=== PATIENT | female | born 1980 | race Caucasian/White ===

== ENCOUNTER 2019-07-23 10:10 | Emergency (ER) | payer OTHER, SELFPAY ==
[2019-07-23 10:17] VITALS: BP 126/79; PULSE 78; RESP 19; TEMP 36.5; O2SAT 100
--- NOTE | 2019-07-23 11:24 | ED_ITS ---
HPI - Back Pain/Injury <SREEKANTH Leach - Last Filed: 07/23/19 22:11> General Chief Complaint: Back Pain/Injury Stated Complaint: lower back pain,legs,feet Time Seen by Provider: 07/23/19 10:59 Source: patient Mode of arrival: ambulatory Limitations: no limitations History of Present Illness HPI Narrative: 38-year-old female with a history of sciatica, presents emergency department today complaining of left sided buttocks pain. She states the pain is constant 9/10 dull aching pressure with occasional shooting pains down the back of her left leg. This started 2 days ago, it is worse with sitting and standing and slightly better with lying, the pain radiates down her left leg and causes occasional tingling to the back of her calf. She states yesterday it started to radiate to her right leg, today the pain is much worse. She also reports a ?pressure in her pubic bone ?, but denies dysuria. Patient denies fevers, chest pain, shortness of breath, rash, weakness in her legs, saddle paresthesias, abdominal pain, nausea, vomiting, or diarrhea. Related Data Home Medications Medication Instructions Recorded Confirmed duloxetine 30 mg PO QDAY #0 01/06/18 lamotrigine [Lamictal] 100 mg PO Q DAY #0 01/06/18 levonorgestrel-ethinyl estrad 1 PO QDAY #0 01/06/18 [Setlakin] propranolol 20 mg PO QDAY #0 01/06/18 lisdexamfetamine [Vyvanse] 50 mg PO DAILY 07/23/19 07/23/19 rizatriptan 10 mg PO DIRECTED 07/23/19 07/23/19 Previous Rx's Medication Instructions Recorded cyclobenzaprine 5 mg PO TID PRN #10 tab 07/23/19 Allergies Allergy/AdvReac Type Severity Reaction Status Date / Time Penicillins [PENICILLINS] Allergy Severe Facial Unverified 02/26/18 12:50 swelling, tightness in chest, rash Review of Systems <SREEKANTH Leach - Last Filed: 07/23/19 22:11> Review of Systems Narrative: REVIEW OF SYSTEMS: GENERAL: Denies fever or chills. HENT: No head trauma. EYES: No double vision or vision loss. CARDIOVASCULAR: No chest pain or syncope. RESPIRATORY: No shortness of breath or cough. GASTROINTESTINAL: No nausea, vomiting, diarrhea, or constipation. GENITOURINARY: No flank pain or dysuria. MUSCULOSKELETAL: Complains of back pain, see HPI. INTEGUMENTARY: No rash, lesions, or pruritus. NEURO: Complains of tingling in left lower extremity, see HPI. PSYCH: No behavior or mood changes. PFSH <SREEKANTH Leach - Last Filed: 07/23/19 22:11> Medical History Back pain (Acute) Social History Smoking Status: Never smoker Social History Smoking Status: Never smoker Exam <SREEKANTH Laech - Last Filed: 07/23/19 22:11> Initial Vital Signs Initial Vital Signs: Vital Signs Temperature 97.7 F 07/23/19 10:17 Pulse Rate 78 07/23/19 10:17 Respiratory Rate 19 07/23/19 10:17 Blood Pressure 126/79 07/23/19 10:17 Pulse Oximetry 100 07/23/19 10:17 PHYSICAL EXAMINATION: GENERAL: Well groomed, alert, and cooperative. Answers questions promptly and appropriately. Vital signs noted. HENT: Normocephalic, atraumatic. EYES: Symmetrical, sclera white, no periorbital swelling. CARDIOVASCULAR: S1 and S2 sounds normal. Regular rate and rhythm, no murmurs, clicks, or bruits. No pedal edema. RESPIRATORY: Normal respiratory rate, trachea midline, airway patent. No stridor, nasal flaring or accessory muscle use. Lungs are clear in all elkins. MUSCULOSKELETAL: Tenderness along paraspinal vertebral muscles to lumbar region, no tenderness to lumbar spine. Pain was worsened with movement such as rolling over and standing up. 5/5 equal strength to upper and lower extremities. Normal gait and coordination. Equal tone and mass bilaterally. No deformities. EXTREMITIES: CMS intact to lower extremities. No pedal edema. Pedal pulses 2+ and equal bilaterally. SKIN: Warm, dry, soft, appropriate color for ethnicity. No lesions, rashes, or wounds. NEURO: Alert and Oriented X 3. No sensory deficits. Light touch sensation intact to lower extremities. PSYCH: Appropriate affect and mood. <Mesha Abbasi DO - Last Filed: 07/24/19 07:38> Initial Vital Signs Initial Vital Signs: Vital Signs Temperature 97.7 F 07/23/19 10:17 Pulse Rate 78 07/23/19 10:17 Respiratory Rate 19 07/23/19 10:17 Blood Pressure 126/79 07/23/19 10:17 Pulse Oximetry 100 07/23/19 10:17 Course <SREEKANTH Leach - Last Filed: 07/23/19 22:11> Course Course Narrative: Patient reports a slight relief after administration of Toradol. Before administration of Valium, patient states that she does have her at home. Orders Ordered: Discontinued Medications Diazepam (Valium) 5 mg PO NOW ONE Stop: 07/23/19 12:21 Last Admin: 07/23/19 12:32 Dose: 5 mg Documented by: MARÍA Ketorolac Tromethamine (Toradol) 30 mg IM NOW ONE Stop: 07/23/19 11:24 Last Admin: 07/23/19 11:38 Dose: 30 mg Documented by: DRE Vital Signs Vital signs: Vital Signs - 8 hr 07/23/19 10:17 Temperature 97.7 F Pulse Rate 78 Respiratory Rate 19 Blood Pressure 126/79 Pulse Oximetry 100 <Mesha Abbasi DO - Last Filed: 07/24/19 07:38> Orders Ordered: Discontinued Medications Diazepam (Valium) 5 mg PO NOW ONE Stop: 07/23/19 12:21 Last Admin: 07/23/19 12:32 Dose: 5 mg Documented by: DAGMARONEIshan Ketorolac Tromethamine (Toradol) 30 mg IM NOW ONE Stop: 07/23/19 11:24 Last Admin: 07/23/19 11:38 Dose: 30 mg Documented by: UDSON Vital Signs Vital signs: Vital Signs - 8 hr 07/23/19 10:17 Temperature 97.7 F Pulse Rate 78 Respiratory Rate 19 Blood Pressure 126/79 Pulse Oximetry 100 MDM - Back Pain/Injury <SREEKANTH Leach - Last Filed: 07/23/19 22:11> Medical Records Attestation: I reviewed the patient's medical records. Lab Data Attestation: I reviewed the patient's lab results. Labs: Point of Care Testing Test Results Negative Urine Dip Bedside Urine Glucose Negative Bedside Urine Bilirubin - Negative Bedside Urine Ketone - Negative Urine Specific [place] 1.010 Bedside Urine Occult Blood - Negative Bedside Urine pH 6.0 Bedside Urine Protein - Negative Bedside Urine Urobilinogen - Negative Bedside Urine Nitrite - Negative Bedside Urine Leukocytes - Negative Esterase Imaging Data Lumbar Xray: Radiologist's impression: [address] [address] XRay Report Signed Patient: Rossi Levy GMR#: [id number] : 1980Acct:[id number] Age/Sex: 38 / FDate of Service: 07/23/19 Loc: ED Accession Number: [id number] Procedure: XR lumbar spine 2-3V Ordering Provider: Marisol Wagner PROCEDURE: XR LUMBAR SPINE 2-3V INDICATIONS: Lumbar back pain, worse with movement. TECHNIQUE: 3 views of the lumbar spine were acquired. COMPARISON: None. FINDINGS: Bones: 5 [id number] vertebrae are present with vestigial 12th ribs. There is greater I L5-S1 isthmic spondylolisthesis. There is mild convex right curvature of the lumbar spine. No vertebral body compression fractures. No suspicious bony lesions. Soft tissues: Overlying bowel gas pattern is normal. No suspicious soft tissue calcifications. IMPRESSION: Grade I L5-S1 isthmic spondylolisthesis. Dictated by: Adelaida Michaels MD, PhD on 07/23/2019 at 11:45 Approved by: Adelaida Michaels MD, PhD on 07/23/2019 at 11:47 MDM Narrative Medical decision making narrative: Differential includes sciatica (high likely due to description of nerve pain, location of pain), pain from spondyloisthesis (spinal deviation noted on x-ray but remains a grade I), muscle spasms (report of spasm and her spinal vertebral tenderness), infection (less likely due to lack of systemic symptoms such as fever, no recent spinal injections), urinary tract infection (less likely due to negative POC), (less likely due to negative urine ). Strict return precautions given and follow-up instructions discussed. <Mesha Abbasi DO - Last Filed: 07/24/19 07:38> Lab Data Labs: Point of Care Testing Test Results Negative Urine Dip Bedside Urine Glucose Negative Bedside Urine Bilirubin - Negative Bedside Urine Ketone - Negative Urine Specific [place] 1.010 Bedside Urine Occult Blood - Negative Bedside Urine pH 6.0 Bedside Urine Protein - Negative Bedside Urine Urobilinogen - Negative Bedside Urine Nitrite - Negative Bedside Urine Leukocytes - Negative Esterase Discharge Plan Departure Patient Disposition: Home Clinical Impression: Isthmic spondylolisthesis, Back spasm Back pain Qualifiers: Back pain location: low back pain Chronicity: acute Back pain laterality: bilateral Sciatica presence: with sciatica Sciatica laterality: sciatica of left side Qualified Code(s): M54.42 - Lumbago with sciatica, left side Discharge Date/Time: 07/23/19 12:58 Instructions: DI for Back Pain With Sciatica, DI for Back Spasm Activity Restrictions/Additional Instructions: Thank you for entrusting me with your care today. As discussed, your x-ray show grade 1 spondylolisthesis which may or may not be contributing to your back pain. Because you are having back spasms as well, I prescribed you a muscle relaxer. This can make you drowsy so do not drive with this medication. Please schedule a follow-up appoint with your primary care provider for further testing and evaluation if indicated. Return to the emergency department if you develop chest pain, shortness of breath, loss of bowel or bladder control, tingling or numbness in her pelvis, dizziness, or syncope. Prescriptions: New cyclobenzaprine 5 mg tablet 5 mg PO TID PRN (Reason: muscle spasm) Qty: 10 RF: 0 No Action lamotrigine [Lamictal] 100 MG tablet 100 mg PO Q DAY Qty: 0 RF: 0 propranolol 20 MG tablet 20 mg PO QDAY Qty: 0 RF: 0 levonorgestrel-ethinyl estrad [Setlakin] 1 EACH tablets,dose pack,3 month 1 PO QDAY Qty: 0 RF: 0 duloxetine 30 MG capsule,delayed release(DR/EC) 30 mg PO QDAY Qty: 0 RF: 0 rizatriptan 10 mg tablet 10 mg PO DIRECTED RF: 0 Vyvanse 50 mg capsule 50 mg PO DAILY RF: 0 Referrals: Magali Iraheta DO [Primary Care Provider] - Stand Alone Forms: Work Release Note
[2019-07-23] MEDS: KETOROLAC 60 MG/2 ML VIAL 30 MG IM (11:38)
[2019-07-23] MEDS: diazePAM 5 MG TABLET PO (12:32)
== END 2019-07-23 12:58 | disposition home or self-care (01) ==
PROVIDERS: Emergency Provider Nurse Practitioner; PCP Family Medicine
DX: M54.42 Lumbago with sciatica, left side (principal)
CPT/HCPCS: 72100; 81003; 81025; 96372; 99282; 99284; J1885